=== PATIENT | male | born 1985 | race Caucasian/White ===

== ENCOUNTER 2016-11-20 17:25 | Emergency (ER) | payer SELFPAY ==
[2016-11-20 17:32] VITALS: BP 155/86
[2016-11-20] MEDS ORDERED: KETOROLAC TROMETHAMINE 60 MG/2 ML VIAL IM ONE ×2 (17:43)
--- NOTE | 2016-11-20 17:52 | ERNOTE ---
Back Pain ER HPI Date of Service: 11/20/16 Allergies/Adverse Reactions: Allergies No Known Allergies Allergy (Verified 11/20/16 17:32) Home Medications: HOME MEDICATIONS NK [No Home Medication] 12/27/13 [Last Taken Unknown] Narrative: 31-year-old male presenting to the emergency room today. States he pulled something in his back while lifting a box at work yesterday. States he woke up this morning and had increased pain. He did notify his place of employment. Date (Duration): 11/20/16 Timing: Reports: intermittent Quality/Severity: Reports: mild Location of pain: Reports: mid back - right Activities at Onset: Reports: activity Recent Injury?: Reports: no Possible Precipitating Factor: Reports: lifting Modifying Factors - (Improves): Reports: nothing Modifying Factors - (Worsens): Reports: movement flexion Associated Symptoms: Denies: fever/chills, sweating, constipation/incontinence, nausea/vomiting, problems urinating, difficulty walking, lightheadedness, numbess/weakness in legs Review of Systems - Review of Systems Constitutional: Present: no symptoms reported. Absent: weakness, fatigue EYE: Present: no symptoms reported ENT: Present: no symptoms reported Respiratory: Present: no symptoms reported Cardiology: Present: no symptoms reported Gastrointestinal/Abdominal: Present: no symptoms reported Genitourinary: Present: no symptoms reported Musculoskeletal: Present: See HPI, muscle pain, muscle stiffness Skin: Present: no symptoms reported Neurological: Present: no symptoms reported. Absent: weakness, tingling, tremors Endocrine: Present: no symptoms reported Hematologic/Lymphatic: Present: no symptoms reported Psych: Present: no symptoms reported - Patient's Past Medical History Patient History - Medical: No pertinent hx Patient History - Cardiac/Respiratory: No pertinent hx Patient History - Cancer: No Hx of Cancer Patient History - Other: None - Social History Living Situations: home Psych History: No pertinent hx Alcohol Use: none Drug Use: none Physical Exam - Physical Exam General Appearance: Present: wd/wn, alert, no apparent distress Ears, Nose, Throat: Present: normal ENT inspection Neck: Present: normal inspection, full range of motion Respiratory: Present: no respiratory distress Cardiovascular/Chest: Present: regular rate, rhythm Gastrointestinal/Abdominal: Present: normal bowel sounds Back Exam: Present: no vertebral tenderness, decreased range of motion - bending forward is uncomfortable Extremity Exam: Present: normal inspection, normal range of motion, no edema, joint swelling Neurological Exam: Present: alert, oriented. Absent: motor weakness Skin Exam: Present: normal color Lymphatic Exam: Present: no adenopathy ED Progress - Vital Signs Patient's Vital Signs:: I have reviewed the patient's vital signs. Vital Signs: Vital Signs 11/20/16 17:28 Temperature 35.8 C L Pulse Rate 85 Respiratory 12 Rate Blood Pressure 155/86 O2 Sat by Pulse 99 Oximetry - Progress/Reassessment Chief Complaint: Back Pain Progress:: Improved Departure Clinical Impression: Muscle strain of right upper back Qualifiers: Encounter type: initial encounter Qualified Code(s): S29.012A - Strain of muscle and tendon of back wall of thorax, initial encounter - Departure Disposition: Home self-care Condition: Stable Instructions: Thoracic Strain, Bqmm-[id number], Form - Excuse from Work, School, or Physical Activity Additional Instructions: Continue [id number] pain medicine as needed for pain. Apply Biofreeze for comfort. He may apply ice or heat for comfort. 20 minutes on 20 minutes off. Return to emergency room if you have increasing symptoms to control her pain. You may follow up with your primary care physician in 2-3 days if symptoms persist. Referrals: London Simmons MD [Primary Care Provider] -
--- OUTSIDE RECORDS SUMMARY | 2016-11-20 18:01 | XMS REPORT | Continuity of Care Document ---
:1985 Author Organization [facility] ([facility]) Address [place] [address] Phone [phone] Care Team Providers Name Role Phone Tramaine Pérez Primary Care Provider [phone] Source Comments This disclosure is being made pursuant to the Care Everywhere program, applicable federal and state laws, and may not contain all informaitonavailable regarding this patient.[facility] ([facility]) Active Allergies and Adverse Reactions No Known Allergies Current Medications Prescription Sig. Disp. Refills Start Date End Date Status HYDROcodone-acetamino Take 1 Tab by mouth 20 Tab 0 06/13/2014 Active phen 5-325 mg per every 4 hours as tablet needed for Pain. DO NOT EXCEED 3,000 MG ACETAMINOPHEN PER DAY FROM ALL SOURCES Indications: PAIN Active Problems Not on file Social History Tobacco Use Types Packs/Day Years Used Date Current Every Day Smoker Cigarettes 1 15 Smokeless Tobacco: Never Used Tobacco Cessation:Ready to Quit: No; Counseling Given: Yes Comments: Alcohol Use Drinks/Week oz/Week Comments No 1 Cans of beer 0.5 occassional Last Filed Vital Signs Vital Sign Reading Time Taken Blood Pressure 124/79 06/13/2014 3:09 PM CDT Pulse 59 06/13/2014 2:12 PM CDT Temperature 36 C (96.8 F) 06/13/2014 2:12 PM CDT Respiratory Rate 16 06/13/2014 2:15 PM CDT Height 1.626 m (5' 4.02") 06/13/2014 2:15 PM CDT Weight 77.111 kg (170 lb) 06/13/2014 2:15 PM CDT Body Mass Index 29.17 06/13/2014 2:15 PM CDT Oxygen Saturation 98% 06/13/2014 2:12 PM CDT Plan of Care Health Maintenance Due Date Last Done Comments Hepatitis B Vaccine (1 of 3 - Primary Series) 1985 Tdap Vaccine 1994 Lipid Disorder Screening 2001 MMR Vaccine 2001 Td Vaccine 2001 Varicella Vaccine (1 of 2 - Adult - No Evidence of 2001 Immunity) Pneumococcal Vaccine (1 of 1 - PPSV23) 2002 Influenza Vaccine: Seasonal (#1) 04/12/2016 Results from Last 3 Months Not on file
== END 2016-11-20 17:57 | disposition home or self-care (01) ==
LOC: ER 17:25
DX: S29.012A Strain of muscle and tendon of back wall of thorax, initial encounter (principal); X58.XXXA Exposure to other specified factors, initial encounter; Y93.89 Activity, other specified; Y92.9 Unspecified place or not applicable; Y99.0 Civilian activity done for income or pay

== ENCOUNTER 2016-11-22 11:03 | Emergency (ER) | payer SELFPAY ==
[2016-11-22 11:11] VITALS: BP 121/67
--- NOTE | 2016-11-22 11:30 | ERNOTE ---
Back Pain ER HPI Date of Service: 11/22/16 Time Seen by Provider: 11/22/16 11:13 Source: patient Exam Limitations: no limitations Allergies/Adverse Reactions: Allergies No Known Allergies Allergy (Verified 11/20/16 17:32) Home Medications: HOME MEDICATIONS Cyclobenzaprine HCl [Flexeril] 10 mg PO TID PRN #30 tab 11/22/16 [Last Taken Unknown] Naproxen [Naprosyn] 500 mg PO BID PRN #60 tab 11/22/16 [Last Taken Unknown] Narrative: Pt. comes in with c/o bilateral paraspinous thoracic back pain for four days after he slipped while lifting boxes at work. Pt. ws seen here two days ago for this problem and told to use biofreeze and OTC NSAIDS and has done this but not consistently. Pt. denies any SOB, CP, NVD, numbness or tingling. Pt. states that problem ios getting worse and denies having a pcp at this time. Review of Systems - Review of Systems Constitutional: Present: no symptoms reported. Absent: recent illness, fever, chills, weakness, fatigue, malaise EYE: Present: no symptoms reported ENT: Present: no symptoms reported Respiratory: Present: no symptoms reported. Absent: shortness of breath, cough , wheezing Cardiology: Present: no symptoms reported. Absent: chest pain, edema Gastrointestinal/Abdominal: Present: no symptoms reported. Absent: nausea, vomiting, diarrhea Genitourinary: Present: no symptoms reported Musculoskeletal: Present: back pain. Absent: neck pain, joint pain Skin: Present: no symptoms reported Neurological: Present: no symptoms reported. Absent: headache, dizziness/light- headedness, numbness, tingling All Other Systems: All systems neg except as marked - Patient's Past Medical History Patient History - Medical: No pertinent hx Patient History - Cardiac/Respiratory: No pertinent hx Patient History - Cancer: No Hx of Cancer Patient History - Other: None - Family History Mother Family History - Medical: , Diabetes Type 2 Father Family History - Medical: No pertinent hx - Social History Living Situations: home Psych History: No pertinent hx Smoking Status: Current every day smoker Have you smoked in the past 12 months: Yes Do you dip or chew tobacco: No Alcohol Use: none Drug Use: none Physical Exam - Physical Exam General Appearance: Present: wd/wn, alert, no apparent distress Eye Exam: Normal inspection: bilateral, PERRL: bilateral, EOMI: bilateral Ears, Nose, Throat: Present: normal ENT inspection, normal pharynx Neck: Present: normal inspection, nontender. Absent: lymphadenopathy (R), lymphadenopathy (L) Respiratory: Present: no respiratory distress, normal breath sounds, no accessory muscle use, chest nontender, lungs clear Cardiovascular/Chest: Present: regular rate, rhythm, no murmur, normal peripheral pulses Back Exam: Present: no CVA tenderness, no vertebral tenderness, decreased range of motion, muscle spasm - T 10-12 paraspinous. Absent: vertebral tenderness Extremity Exam: Present: normal inspection, non-tender, normal range of motion, no edema Neurological Exam: Present: alert, oriented, normal mood/affect, no motor/ sensory deficits Skin Exam: Present: normal color, warm/dry. Absent: pallor, skin rash ED Progress - Vital Signs Patient's Vital Signs:: I have reviewed the patient's vital signs. Vital Signs: Vital Signs 11/22/16 11:06 Temperature 36.8 C Pulse Rate 76 Respiratory 14 Rate Blood Pressure 121/67 O2 Sat by Pulse 97 Oximetry - X-Ray X-Ray #1 X-Ray: thoracic Interpretation: Reviewed by me X-ray Comments: T10-12 degenerative disk disease. - Progress/Reassessment Chief Complaint: Back Pain Departure Clinical Impression: Degenerative disk disease Qualifiers: Spinal region: thoracic Qualified Code(s): M51.34 - Other intervertebral disc degeneration, thoracic region - Departure Disposition: Home self-care Condition: Good Instructions: Degenerative Disk Disease Additional Instructions: Please follow up with primary provider in 2-3 days. Prescriptions: Cyclobenzaprine HCl [Flexeril] 10 mg PO TID PRN #30 tab PRN Reason: MUSCLE SPASMS Naproxen [Naprosyn] 500 mg PO BID PRN #60 tab PRN Reason: Pain
--- OUTSIDE RECORDS SUMMARY | 2016-11-22 11:47 | XMS REPORT | Continuity of Care Document ---
:1985 Author Organization [facility] ([facility]) Address [place] [address] Phone [phone] Care Team Providers Name Role Phone Tramaine Pérez Primary Care Provider [phone] Source Comments This disclosure is being made pursuant to the Care Everywhere program, applicable federal and state laws, and may not contain all informaitonavailable regarding this patient.[facility] ([facility]) Active Allergies and Adverse Reactions No [...]
== END 2016-11-22 12:01 | disposition home or self-care (01) ==
LOC: ER 11:03
DX: M51.34 Other intervertebral disc degeneration, thoracic region (principal); Z72.0 Tobacco use

== ENCOUNTER 2016-12-19 14:48 | Emergency (ER) | payer SELFPAY ==
[2016-12-19 17:16] VITALS: BP 126/90
[2016-12-19] MEDS ORDERED: KETOROLAC TROMETHAMINE 60 MG/2 ML VIAL IM ONE ×2 (17:29→17:34)
--- NOTE | 2016-12-19 17:41 | ERNOTE ---
ENT HPI Date of Service: 12/19/16 Presenting Symptoms: dental pain Time Seen by Provider: 12/19/16 17:27 Source: patient Exam Limitations: no limitations - Immun/Allergies/Home Medications Immunizations: IMMUNIZATION HX Immunizations Up to Date Yes Allergies/Adverse Reactions: Allergies Allergy/AdvReac Type Severity Reaction Status Date / Time No Known Allergies Allergy Verified 12/19/16 15:42 Home Medications: HOME MEDICATIONS NK [No Home Medication] 12/19/16 [Last Taken Unknown] - History of Present Illness Narrative: 31-year-old male presenting to the emergency room for dental pain. Patient states that his left back molar has been bothering him today he has not taken anything for pain today. Date (Duration): 12/19/16 Severity: Present: mild ENT Location: Present: dental Prearrival Treatment: Present: no prearrival treatment. Absent: over the counter meds Modifying Factors - Improves: Reports: nothing Modifying Factors - Worsens: Reports: nothing Associated Symptoms - ENT: Reports: tooth pain - back left molar Review of Systems - Review of Systems Constitutional: Present: no symptoms reported EYE: Present: no symptoms reported ENT: Present: See HPI Respiratory: Present: no symptoms reported Cardiology: Present: no symptoms reported Gastrointestinal/Abdominal: Present: no symptoms reported Genitourinary: Present: no symptoms reported Musculoskeletal: Present: no symptoms reported Skin: Present: no symptoms reported Neurological: Present: no symptoms reported Endocrine: Present: no symptoms reported Hematologic/Lymphatic: Present: no symptoms reported Psych: Present: no symptoms reported - Patient's Past Medical History Patient History - Medical: No pertinent hx Patient History - Cardiac/Respiratory: No pertinent hx Patient History - Cancer: No Hx of Cancer Patient History - Surgical Procedures: Orthopedic Patient History - Other: None - Family History Mother Family History - Medical: , Diabetes Type 2 Father Family History - Medical: No pertinent hx - Social History Living Situations: home Psych History: No pertinent hx Smoking Status: Current every day smoker Have you smoked in the past 12 months: Yes Alcohol Use: none Drug Use: none - Immunizations Immunizations Up to Date: Yes Physical Exam - Physical Exam Narrative: patient states he has pain with tooth manipulation. teeth are not loose, no swelling or reddness observed upon exam. patient is eating and drinking in the exam room. General Appearance: Present: wd/wn, alert, no apparent distress Eye Exam: Normal inspection: bilateral Ears, Nose, Throat: Present: normal except - - tooth pain during exam. no s/s of infection Neck: Present: normal inspection, nontender, full range of motion Respiratory: Present: no respiratory distress, lungs clear Cardiovascular/Chest: Present: regular rate, rhythm Gastrointestinal/Abdominal: Present: normal bowel sounds Extremity Exam: Present: normal range of motion, no edema Neurological Exam: Present: alert, oriented, normal mood/affect Skin Exam: Present: normal color, warm/dry Lymphatic Exam: Present: no adenopathy ED Progress - Vital Signs Patient's Vital Signs:: I have reviewed the patient's vital signs. Vital Signs: Vital Signs 12/19/16 12/19/16 15:40 17:15 Temperature 37.1 C Pulse Rate 87 80 Respiratory 16 12 Rate Blood Pressure 163/79 126/90 O2 Sat by Pulse 97 97 Oximetry - Progress/Reassessment Chief Complaint: Dental Problem Progress:: Improved Departure Clinical Impression: Pain, dental - Departure Disposition: Home Follow Up Needed Condition: Stable Instructions: Dental Caries, [id number], Preventive Dental Care, Adult Additional Instructions: Continue any previous home medications. He may take [id number] pain medications as needed for pain. Follow-up with your dentist in the next 2-3 days. Return to the emergency room if you develop any signs and symptoms of an infection or if pain is not able to be controlled with [id number] pain medications
--- OUTSIDE RECORDS SUMMARY | 2016-12-19 17:49 | XMS REPORT | Continuity of Care Document ---
:1985 Author Organization [facility] ([facility]) Address [place] [address] Phone [phone] Care Team Providers Name Role Phone Tramaine Pérez Primary Care Provider [phone] Source Comments This disclosure is being made pursuant to the Care Everywhere program, applicable federal and state laws, and may not contain all informaitonavailable regarding this patient.[facility] ([facility]) Active Allergies and Adverse Reactions No [...]
== END 2016-12-19 17:51 | disposition home or self-care (01) ==
LOC: ER 14:48
DX: K08.89 Other specified disorders of teeth and supporting structures (principal)

== ENCOUNTER 2017-07-31 14:39 | Emergency (ER) | payer MEDICAID ==
--- NOTE | 2017-07-31 15:01 | ERNOTE ---
Upper Extremity HPI - Narrative Date of Service: 07/31/17 - General Extremities Pain Location: arm: left - Bruising with limited ROM Time Seen by Provider: 07/31/17 14:56 Source: patient Exam Limitations: no limitations - Immun/Allergies/Home Medications Immunizations: IMMUNIZATION HX Immunizations Up to Date Yes Allergies/Adverse Reactions: Allergies Allergy/AdvReac Type Severity Reaction Status Date / Time No Known Allergies Allergy Verified 12/19/16 15:42 Home Medications: HOME MEDICATIONS NK [No Home Medication] 12/19/16 [Last Taken Unknown] - History of Present Illness Narrative: Patient states he fell on an extended arm 4 days ago and believes he hyperextended the elbow. Date (Duration): 07/31/17 Occurred: last week Location of Incident: home Severity: moderate Method of Injury: Reports: fell Reason for Fall: Reports: unknown Loss of Consciousness: Reports: no loss of consciousness Modifying Factors - (Improves): Reports: pain medication Modifying Factors - (Worsens): Reports: movement Associated Symptoms: Reports: weakness, loss of power (lt arm) Other Injuries: Reports: none Review of Systems - Narrative Narrative: States he fell on a roof and has signficant swelling and bruising on the medial elbow. Has active ROM but limited with flexion. Denies any loss of sensation distally. - Review of Systems Constitutional: Present: no symptoms reported Musculoskeletal: Present: other - along the medial epicodyle. Complains of limited but active ROM. Skin: Present: other - Ecchymosis 12 cm along medial elbow. Neurological: Present: no symptoms reported - Patient's Past Medical History Patient History - Medical: No pertinent hx Patient History - Cardiac/Respiratory: No pertinent hx Patient History - Cancer: No Hx of Cancer Patient History - Surgical Procedures: Orthopedic Patient History - Other: None - Family History Mother Family History - Medical: , Diabetes Type 2 Father Family History - Medical: No pertinent hx - Social History Living Situations: home Abuse History: No History of abuse Psych History: No pertinent hx Alcohol Use: none Drug Use: none - Immunizations Immunizations Up to Date: Yes Physical Exam - Physical Exam General Appearance: Present: wd/wn, alert, moderate distress Respiratory: Present: no respiratory distress Extremity Exam: Present: other - Active but limited left elbow ROM. Has full extension but flexion limited up to 90 degrees. Limited rotation. No abnormal bony structure of the left elbow. Epicondyles intact. Bruising 12 cm from proximal medial ulnar up into the medial bicep. Radial pulse strong. Wine Pasteurizer weak. Distal sensation intact. Neurological Exam: Present: alert, oriented, normal mood/affect Skin Exam: Present: other - As above. ED Progress - Vital Signs Patient's Vital Signs:: I have reviewed the patient's vital signs. Vital Signs: Vital Signs 07/31/17 14:46 Temperature 36.9 C Pulse Rate 93 Respiratory 12 Rate Blood Pressure 152/98 O2 Sat by Pulse 99 Oximetry - X-Ray X-Ray #1 X-Ray: elbow Interpretation: Interp. by me X-ray Comments: Proximal radial fracture extending into the head. Not dislocated. - Progress/Reassessment Chief Complaint: Upper Extremity Injury/Problem Progress:: Improved - Transfer of Care Expected Disposition: Discharge Additional Notes: Spoke with Ortho Dr. Park who instructed for a sugar tong splint and an arm sling. Patient to call ortho office on Tuesday and make an appointment. Departure Clinical Impression: Left radial head fracture Qualifiers: Encounter type: initial encounter Fracture type: closed Fracture alignment: nondisplaced Qualified Code(s): S52.125A - Nondisplaced fracture of head of left radius, initial encounter for closed fracture - Departure Disposition: Home Follow Up Needed Condition: Good Additional Instructions: Absolutely no use of the left arm. Keep in the sling and splint. Call ortho on Tuesday morning for appointment time. Tylenol/motrin for pain. If you lose any sensation in the fingers loose up the splint and notify ortho.
[2017-07-31 16:42] VITALS: BP 133/69
== END 2017-07-31 16:40 | disposition home or self-care (01) ==
LOC: ER 14:39
PROC: 2W39X1Z Immobilization of Left Upper Extremity using Splint (ICD-10-PCS; principal; 2017-07-31)
DX: S52.125A Nondisplaced fracture of head of left radius, initial encounter for closed fracture (principal); W18.30XA Fall on same level, unspecified, initial encounter; Y92.89 Other specified places as the place of occurrence of the external cause; Y99.9 Unspecified external cause status